=== PATIENT | female | born 1945 | race Caucasian/White ===

== ENCOUNTER 2023-10-16 19:32 | Outpatient (CLI) | payer OTHER, SELFPAY | END 2023-10-16 19:33 | disposition home or self-care (01) | LOC: AMB 11-08 22:08 | PROVIDERS: Visit Provider Emergency Medicine | DX: R56.9 Unspecified convulsions (principal); C71.9 Malignant neoplasm of brain, unspecified | CPT/HCPCS: A0425; A0434 ==